=== PATIENT | male | born 2000 | race Two or more races ===

== ENCOUNTER 2021-01-08 15:36 | Emergency (ER) | payer SELFPAY ==
[~2021-01-08] VITALS: Ht 167.6 cm; Wt 70.0 kg
--- NOTE | 2021-01-08 16:25 | NUR ---
first contact with pt. pt c/o upper/epigastric abd pain with constipation. lbm last tue per pt. denies n/v. pt's aox4. resps even and unlabored. bp/spo2 monitors in place. call light within reach.
--- NOTE | 2021-01-08 17:16 | NUR ---
pt in imaging at this time.
--- NOTE | 2021-01-08 17:29 | NUR ---
pt back to room. pt sitting in [place]. resps even and unlabored.
[2021-01-08 17:44] VITALS: BP 106/59
--- NOTE | 2021-01-08 18:50 | NUR ---
Patient given discharge instructions and they have confirmed that they understand the instructions. Patient ambulatory with steady gait.
== END 2021-01-08 18:51 | disposition home or self-care (01) ==
LOC: ED 18:20
DX: K59.00 Constipation, unspecified (principal); R10.13 Epigastric pain
CPT/HCPCS: 74021; 99283